=== PATIENT | male | born 1945 | race African-American/Black ===

== ENCOUNTER 2018-02-17 01:38 | Emergency (ER) | payer MEDICARE, OTHER ==
[~2018-02-17] VITALS: Ht 172.7 cm; Wt 84.4 kg
--- NOTE | 2018-02-17 02:17 | PHYS DOC ---
Adult General Chief Complaint Chief Complaint: CHEST PAIN [facility] HPI 72-year-old male presents with chest pain. The patient was driving his car when he began to get a sensation of warmth and burning in his right upper quadrant of the abdomen versus the chest. It made him mildly diaphoretic and the patient got worried that it could be a heart attack. He called EMS. The patient admits that the episode lasted 1-2 minutes and then started to resolve. It was a 6 out of 10 at its worst. The episode occurred about 2-1/2 hours ago. He is completely pain-free at this time. The patient has not been having intermittent chest pain lately. Patient states he does occasionally get hypoglycemic and this feeling was similar but the upper abdominal pain was new. Patient denies nausea, vomiting, fever, chills.[] Review of Systems Review of Systems Constitutional: Denies fever or chills [] Eyes: Denies change in visual acuity, redness, or eye pain [] HENT: Denies nasal congestion or sore throat [] Respiratory: Denies cough or shortness of breath [] Cardiovascular: No additional information not addressed in HPI [] GI: Right upper quadrant pain now resolved[] : Denies dysuria or hematuria [] Musculoskeletal: Denies back pain or joint pain [] Integument: Denies rash or skin lesions [] Neurologic: Denies headache, focal weakness or sensory changes [] Endocrine: Denies polyuria or polydipsia [] All other systems were reviewed and found to be within normal limits, except as documented in this note. Allergies Allergies Allergies Coded Allergies Type Severity Reaction Last Updated Verified No Known Drug Allergies 02/17/18 No Physical Exam Physical Exam Constitutional: Well developed, well nourished, no acute distress, non-toxic appearance. [] HENT: Normocephalic, atraumatic, bilateral external ears normal, oropharynx moist, no oral exudates, nose normal. [] Eyes: PERRLA, EOMI, conjunctiva normal, no discharge. [] Neck: Normal range of motion, no tenderness, supple, no stridor. [] Cardiovascular:Heart rate regular rhythm, no murmur [] Lungs & Thorax: Bilateral breath sounds clear to auscultation [] Abdomen: Bowel sounds normal, soft, no tenderness, no masses, no pulsatile masses. [] Skin: Warm, dry, no erythema, no rash. [] Back: No tenderness, no CVA tenderness. [] Extremities: No tenderness, no cyanosis, no clubbing, ROM intact, no edema. [] Neurologic: Alert and oriented X 3, normal motor function, normal sensory function, no focal deficits noted. [] Psychologic: Affect normal, judgement normal, mood normal. [] EKG EKG Paced rhythm, rate 73, widened QRS, no ST elevation or depression.[] Radiology/Procedures Radiology/Procedures [] Impressions: My interpretation: Chest x-ray negative for acute findings. Cardiac silhouette normal size, no pleural effusions or focal consolidations. Pacemaker in place. Course & Med Decision Making Course & Med Decision Making Pertinent Labs and Imaging studies reviewed. (See chart for details) The patient's chest x-ray is unremarkable. His labs are unremarkable. His troponin is negative. The fact that the patient's episode lasted less than 5 minutes is reassuring. He is continued to be pain-free while in the ED. I discussed with the patient warning signs to look for chest pain. If his condition worsens or he develops new symptoms, he will return to the emergency room. He is stable for discharge at this time. [] Dragon Disclaimer Dragon Disclaimer This electronic medical record was generated, in whole or in part, using a voice recognition dictation system. SANDRA LI DO Feb 17, 2018 02:17
[2018-02-17 02:57] LABS: BASO # 0.1 x10^3/uL (0.0-0.2); BASO % 1 % (0-3); EOS # 0.1 x10^3/uL (0.0-0.7); EOS % 1 % (0-3); HEMATOCRIT 48.7 % (39.0-53.0); HEMOGLOBIN 16.2 g/dL (13.0-17.5); LYMPH % 21 % (24-48); MEAN CORPUSCULAR HEMOGLOBIN 28 pg (25-35); MEAN CORPUSCULAR HGB CONC 33 g/dL (31-37); MEAN CORPUSCULAR VOLUME 83 fL (79-100); MONO # 0.8 x10^3/uL (0.0-1.1); MONO % 8 % (0-9); NEUT # 6.6 x10^3uL (1.8-7.7); NEUT % 69 % (31-73); PLATELET COUNT 243 x10^3/uL (140-400); RED BLOOD COUNT 5.85 x10^6/uL (4.30-5.70); RED CELL DISTRIBUTION WIDTH 13.6 % (11.5-14.5); WHITE BLOOD COUNT 9.6 x10^3/uL (4.0-11.0)
[2018-02-17 03:09] LABS: ALBUMIN 3.9 g/dL (3.4-5.0); ALBUMIN/GLOBULIN RATIO 0.9 (1.0-1.7); CALCIUM 9.8 mg/dL (8.5-10.1); CREATININE 1.2 mg/dL (0.7-1.3); GFR 72.2; POTASSIUM 3.6 mmol/L (3.5-5.1); TOTAL BILIRUBIN 0.5 mg/dL (0.2-1.0); TOTAL PROTEIN 8.2 g/dL (6.4-8.2)
[2018-02-17 03:50] VITALS: BP 130/70
--- NOTE | 2018-02-17 06:51 | EKG ---
[address] [address] Test Date: 2018-02-17 Test Time: 02:18:15 Pat Name: ENID DAILY Department: Room: Gender: M End Polisher: : [id number] Requested By: SANDRA LI Order Number: [id number] Reading MD: Measurements Intervals [place] Rate: 73 P: 51 AL: 172 QRS: -51 QRSD: 180 T: 105 QT: 438 QTc: 487 Interpretive Statements SINUS RHYTHM ABNORMAL LEFT AXIS DEVIATION NON SPECIFIC INTRAVENTRICULAR BLOCK QRS(T) CONTOUR ABNORMALITY CONSIDER ANTEROSEPTAL MYOCARDIAL DAMAGE CONSISTENT WITH INFERIOR INFARCT PROBABLY OLD ABNORMAL ECG RI6.01 Unconfirmed report No previous ECG available for comparison
--- NOTE | 2018-02-17 08:14 | RAD ---
Portable chest, 02/17/2018: HISTORY: Chest pain No previous chest radiographs are available at this time for comparison purposes. A left-sided transvenous pacemaker is in place with 2 leads extending into the right heart. The heart size and pulmonary vascularity are normal. There is calcific plaquing of the aorta. No pulmonary infiltrate is seen. There is no evidence of pleural fluid. IMPRESSION: No acute cardiopulmonary abnormality is detected. Electronically signed by: Jan Reid MD (02/17/2018 8:10 AM) [place]
== END 2018-02-17 03:55 | disposition home or self-care (01) ==
LOC: ER 01:38
DX: R10.11 Right upper quadrant pain (principal); R07.9 Chest pain, unspecified
CPT/HCPCS: 36415; 71045; 80053; 84484; 85025; 93005; 99285-25